=== PATIENT | male | born 1995 | race Two or more races ===

== ENCOUNTER 2022-09-20 06:44 | Outpatient (CLI) | payer OTHER | END 2022-09-20 06:46 | disposition home or self-care (01) | LOC: LAB 06:44 | DX: C18.9 Malignant neoplasm of colon, unspecified (principal); E78.5 Hyperlipidemia, unspecified; D50.8 Other iron deficiency anemias ==

== ENCOUNTER 2023-08-24 00:55 | Emergency (ER) | payer OTHER ==
[~2023-08-24] VITALS: Ht 177.8 cm; Wt 62.6 kg
[2023-08-24 04:36] LABS: HEMATOCRIT 45.6 % (39.0-48.0); MEAN CELL VOLUME 85.1 fL (80.0-100.00); MEAN CORPUSCULAR HEMOGLOBIN 29.9 pg (27.00-32.0); MEAN CORPUSCULAR HGB CONC 35.2 g/dl (32.0-36.0); PLATELET COUNT 247 K/uL (150-450); RED BLOOD COUNT 5.36 M/uL (4.00-6.00); RED CELL DISTRIBUTION WIDTH 14.3 % (11.5-14.5)
[2023-08-24 04:53] LABS: INR 1.14; PARTIAL THROMBOPLASTIN TIME 29.9 SECONDS (22.0-34.0)
[2023-08-24 04:59] LABS: ALBUMIN 4.2 gm/dL (3.4-5.0); BILIRUBIN TOTAL 0.58 mg/dL (0.3-1.2); CALCIUM 9.4 mg/dL (8.5-10.1); CREATININE SERUM 0.89 mg/dL (0.70-1.30); GFR 101.06; GLOBULINA 3.7 G/DL (2.4-3.5); POTASSIUM 3.97 mEq/L (3.5-5.1); TOTAL PROTEIN 7.9 gm/dL (6.4-8.2)
[2023-08-24] MEDS ORDERED: MECLIZINE HCL25 MG PO (06:23)
[2023-08-24 07:25] LABS: PROTHROMBIN TIME 11.9 SECONDS (9.0-11.5)
== END 2023-08-24 06:26 ==
LOC: ER 00:55
PROVIDERS: General Practice
DX: R53.1 Weakness (principal); R20.2 Paresthesia of skin

== ENCOUNTER 2023-09-17 17:54 | Emergency (ER) | payer OTHER ==
[~2023-09-17] VITALS: Ht 170.2 cm; Wt 70.8 kg
[~2023-09-17 17:54] MED LIST: MECLIZINE HCL25 MG PO
[2023-09-17 20:06] LABS: HEMATOCRIT 47.4 % (39.0-48.0); HEMOGLOBIN 16.4 g/dL (13-16.00); MEAN CELL VOLUME 86.7 fL (80.0-100.00); MEAN CORPUSCULAR HEMOGLOBIN 30.1 pg (27.00-32.0); MEAN CORPUSCULAR HGB CONC 34.7 g/dl (32.0-36.0); PLATELET COUNT 276 K/uL (150-450); RED BLOOD COUNT 5.46 M/uL (4.00-6.00)
[2023-09-17 20:29] LABS: ALBUMIN 4.7 gm/dL (3.4-5.0); BILIRUBIN TOTAL 0.64 mg/dL (0.3-1.2); CALCIUM 9.9 mg/dL (8.5-10.1); CREATININE SERUM 0.92 mg/dL (0.70-1.30); GFR 97.26; GLOBULINA 3.6 G/DL (2.4-3.5); POTASSIUM 4.51 mEq/L (3.5-5.1); TOTAL PROTEIN 8.3 gm/dL (6.4-8.2)
== END 2023-09-17 20:55 | disposition home or self-care (01) ==
LOC: ER 17:54
PROVIDERS: General Practice
DX: K29.70 Gastritis, unspecified, without bleeding (principal)

== ENCOUNTER 2023-09-27 19:45 | Emergency (ER) | payer OTHER ==
[~2023-09-27] VITALS: Ht 177.8 cm; Wt 59.9 kg
== END 2023-09-27 23:38 | disposition home or self-care (01) ==
LOC: ER 19:46
DX: R53.81 Other malaise (principal); M54.2 Cervicalgia

== ENCOUNTER 2023-09-28 09:35 | Outpatient (CLI) | payer OTHER ==
[2023-09-28 10:27] LABS: HEMATOCRIT 47.7 % (39.0-48.0); HEMOGLOBIN 16.7 g/dL (13-16.00); MEAN CELL VOLUME 85.2 fL (80.0-100.00); MEAN CORPUSCULAR HEMOGLOBIN 29.8 pg (27.00-32.0); MEAN CORPUSCULAR HGB CONC 34.9 g/dl (32.0-36.0); PLATELET COUNT 234 K/uL (150-450)
[2023-09-28 10:56] LABS: CHOL HDL RATIO 3.6 (0-5.0); CREATININE SERUM 1.1 mg/dL (0.70-1.30)
== END 2023-09-28 09:36 | disposition home or self-care (01) ==
LOC: LAB 09:35
PROVIDERS: ATTEND Internal Medicine
DX: I77.9 Disorder of arteries and arterioles, unspecified (principal); C18.9 Malignant neoplasm of colon, unspecified; E78.5 Hyperlipidemia, unspecified; D50.8 Other iron deficiency anemias

== ENCOUNTER → 2023-09-28 | Outpatient (CLI) | payer OTHER | END | disposition home or self-care (01) | LOC: MRI 11:09 | DX: I77.9 Disorder of arteries and arterioles, unspecified (principal) | CPT/HCPCS: 70548 ==

== ENCOUNTER 2023-10-01 22:13 | Emergency (ER) | payer OTHER ==
[~2023-10-01] VITALS: Ht 177.8 cm; Wt 59.9 kg
[2023-10-01 23:29] LABS: HEMATOCRIT 43.8 % (39.0-48.0); HEMOGLOBIN 15.4 g/dL (13-16.00); MEAN CORPUSCULAR HEMOGLOBIN 30.2 pg (27.00-32.0); MEAN CORPUSCULAR HGB CONC 35.1 g/dl (32.0-36.0); PLATELET COUNT 213 K/uL (150-450); RED CELL DISTRIBUTION WIDTH 13.7 % (11.5-14.5)
[2023-10-01 23:48] LABS: CALCIUM 9.3 mg/dL (8.5-10.1); CREATININE SERUM 1.28 mg/dL (0.70-1.30); GFR 66.44; POTASSIUM 3.92 mEq/L (3.5-5.1)
[2023-10-01 23:55] LABS: INR 1.16; PARTIAL THROMBOPLASTIN TIME 29.6 SECONDS (22.0-34.0)
[2023-10-01 23:58] LABS: URINE APPEARANCE Clear; URINE BILIRRUBIN Negative (NEGATIVE); URINE BLOOD Trace; URINE COLOR Yellow; URINE GLUCOSE Negative (NEGATIVE); URINE LEUKOCYTE Negative; URINE NITRATE Negative; URINE UROBILINOGEN 0.2 E.U./dl
[2023-10-02 00:01] LABS: URINE BACTERIA 32.7 uL (0.0-1933); URINE RBC 3.5 uL (0.0-20.8)
[2023-10-02 00:06] LABS: URINE EPITHELIAL CELLS 1.3 uL (0.0-38.8); URINE PROTEIN 100 (NEGATIVE); URINE WBC 1.3 uL (0.0-23.2)
== END 2023-10-02 03:25 | disposition home or self-care (01) ==
LOC: ER 22:14
PROVIDERS: General Practice
DX: R10.9 Unspecified abdominal pain (principal); K30 Functional dyspepsia; R14.3 Flatulence; R14.2 Eructation

== ENCOUNTER 2023-10-06 19:56 | Emergency (ER) | payer OTHER ==
[~2023-10-06] VITALS: Ht 177.8 cm; Wt 59.0 kg
[2023-10-06] MEDS ORDERED: FAMOTIDINE20 MG (20:13)
[2023-10-06] MEDS ORDERED: LISINOPRIL2.5 MG (20:13)
[2023-10-06 22:47] LABS: HEMATOCRIT 41.2 % (39.0-48.0); HEMOGLOBIN 14.6 g/dL (13-16.00); MEAN CELL VOLUME 85.1 fL (80.0-100.00); MEAN CORPUSCULAR HEMOGLOBIN 30.2 pg (27.00-32.0); MEAN CORPUSCULAR HGB CONC 35.5 g/dl (32.0-36.0); PLATELET COUNT 171 K/uL (150-450); RED BLOOD COUNT 4.85 M/uL (4.00-6.00); RED CELL DISTRIBUTION WIDTH 13.6 % (11.5-14.5)
[2023-10-06 22:58] LABS: URINE APPEARANCE Clear; URINE BILIRRUBIN Negative (NEGATIVE); URINE BLOOD Small; URINE COLOR Yellow; URINE GLUCOSE Negative (NEGATIVE); URINE LEUKOCYTE Negative; URINE NITRATE Negative; URINE PROTEIN Negative (NEGATIVE); URINE UROBILINOGEN 0.2 E.U./dl
[2023-10-06 23:02] LABS: URINE WBC 3.2 uL (0.0-23.2)
[2023-10-06 23:06] LABS: URINE BACTERIA 3.7 uL (0.0-1933); URINE EPITHELIAL CELLS 1.2 uL (0.0-38.8)
[2023-10-06 23:15] LABS: CREATININE SERUM 1.47 mg/dL (0.70-1.30); GFR 56.63; POTASSIUM 3.92 mEq/L (3.5-5.1)
[2023-10-07] MEDS ORDERED: LEVSIN/SL0.125 MG SL (02:44)
[2023-10-07] MEDS ORDERED: PEPCID AC20 MG PO (02:44)
[2023-10-07] MEDS ORDERED: CARAFATE1 GM PO (02:51)
== END 2023-10-07 03:00 | disposition home or self-care (01) ==
LOC: ER 19:56
DX: R10.9 Unspecified abdominal pain (principal)
CPT/HCPCS: 36415; 74177; Q9965

== ENCOUNTER → 2023-11-02 07:04 | Outpatient (CLI) | payer OTHER ==
[~2023-11-02 07:04] MED LIST changes: +CARAFATE1 GM PO; +FAMOTIDINE20 MG; +LEVSIN/SL0.125 MG SL; +LISINOPRIL2.5 MG; +PEPCID AC20 MG PO
[2023-11-02 08:51] LABS: HEMATOCRIT 44.3 % (39.0-48.0); HEMOGLOBIN 15.4 g/dL (13-16.00); MEAN CELL VOLUME 84.4 fL (80.0-100.00); MEAN CORPUSCULAR HEMOGLOBIN 29.2 pg (27.00-32.0); MEAN CORPUSCULAR HGB CONC 34.6 g/dl (32.0-36.0); PLATELET COUNT 187 K/uL (150-450); RED BLOOD COUNT 5.25 M/uL (4.00-6.00); RED CELL DISTRIBUTION WIDTH 13.4 % (11.5-14.5)
[2023-11-02 09:28] LABS: ALBUMIN 4.2 gm/dL (3.4-5.0); BILIRUBIN TOTAL 0.83 mg/dL (0.3-1.2); CALCIUM 9.5 mg/dL (8.5-10.1); CHOL HDL RATIO 4.3 (0-5.0); CREATININE SERUM 1.13 mg/dL (0.70-1.30); FREE TRIODOTIRONINE 2.87 pg/ml (2.18-3.98); GFR 76.72; GLOBULINA 3.3 G/DL (2.4-3.5); POTASSIUM 3.66 mEq/L (3.5-5.1); T4 FREE 1.29 NG/ML (0.76-1.46); TOTAL PROTEIN 7.5 gm/dL (6.4-8.2); TSH 1.82 uIU/mL (0.358-3.74)
[2023-11-02 09:33] LABS: URINE APPEARANCE Clear; URINE BILIRRUBIN Negative (NEGATIVE); URINE BLOOD Negative; URINE COLOR Yellow; URINE GLUCOSE Negative (NEGATIVE); URINE LEUKOCYTE Trace; URINE NITRATE Negative; URINE PROTEIN Negative (NEGATIVE); URINE UROBILINOGEN 0.2 E.U./dl
[2023-11-02 09:44] LABS: URINE BACTERIA 23.9 uL (0.0-1933); URINE EPITHELIAL CELLS 1.6 uL (0.0-38.8); URINE RBC 2.1 uL (0.0-20.8); URINE WBC 10.7 uL (0.0-23.2)
[2023-11-02 14:14] LABS: ob NEGATIVE (NEGATIVE)
== END | disposition home or self-care (01) ==
LOC: LAB 07:04
DX: D64.9 Anemia, unspecified (principal); I10 Essential (primary) hypertension; Z13.1 Encounter for screening for diabetes mellitus; Z11.4 Encounter for screening for human immunodeficiency virus [HIV]; E78.00 Pure hypercholesterolemia, unspecified; N39.0 Urinary tract infection, site not specified; E55.9 Vitamin D deficiency, unspecified; Z13.89 Encounter for screening for other disorder; Z12.11 Encounter for screening for malignant neoplasm of colon

== ENCOUNTER 2023-11-29 09:17 | Outpatient (CLI) | payer OTHER | END 2023-11-29 09:18 | disposition home or self-care (01) | LOC: LAB 09:17 | DX: Z13.1 Encounter for screening for diabetes mellitus (principal) ==

== ENCOUNTER 2023-11-30 07:47 | Outpatient (CLI) | payer OTHER | END 2023-11-30 07:55 | disposition home or self-care (01) | LOC: SONOGRAMA 07:47 | DX: R10.84 Generalized abdominal pain (principal); Z13.29 Encounter for screening for other suspected endocrine disorder; M54.9 Dorsalgia, unspecified ==

== ENCOUNTER → 2024-05-30 08:03 | Outpatient (CLI) | payer OTHER ==
[2024-05-30 08:46] LABS: HEMATOCRIT 44.6 % (39.0-48.0); HEMOGLOBIN 15.5 g/dL (13-16.00); MEAN CELL VOLUME 85.8 fL (80.0-100.00); MEAN CORPUSCULAR HEMOGLOBIN 29.8 pg (27.00-32.0); MEAN CORPUSCULAR HGB CONC 34.7 g/dl (32.0-36.0); PLATELET COUNT 213 K/uL (150-450); RED CELL DISTRIBUTION WIDTH 14.3 % (11.5-14.5)
[2024-05-30 09:49] LABS: ALBUMIN 4.3 gm/dL (3.4-5.0); BILIRUBIN TOTAL 0.45 mg/dL (0.3-1.2); CALCIUM 9.6 mg/dL (8.5-10.1); CREATININE SERUM 1.01 mg/dL (0.70-1.30); GFR 86.73; GLOBULINA 3.2 G/DL (2.4-3.5); POTASSIUM 3.98 mEq/L (3.5-5.1); TOTAL PROTEIN 7.5 gm/dL (6.4-8.2)
== END | disposition home or self-care (01) ==
LOC: LAB 08:03
PROVIDERS: ATTEND Internal Medicine
DX: D50.8 Other iron deficiency anemias (principal); C18.9 Malignant neoplasm of colon, unspecified

== ENCOUNTER 2024-07-29 07:32 | Outpatient (CLI) | payer OTHER ==
[2024-07-29 08:06] LABS: URINE APPEARANCE Clear; URINE BILIRRUBIN Negative (NEGATIVE); URINE BLOOD Negative; URINE COLOR Yellow; URINE GLUCOSE Negative (NEGATIVE); URINE KETONE Negative (NEGATIVE); URINE LEUKOCYTE Negative; URINE NITRATE Negative; URINE PROTEIN Negative (NEGATIVE); URINE UROBILINOGEN 0.2 E.U./dl
[2024-07-29 08:08] LABS: URINE RBC 6.7 uL (0.0-20.8)
[2024-07-29 08:08] LABS: HEMATOCRIT 45.5 % (39.0-48.0); HEMOGLOBIN 15.7 g/dL (13-16.00); MEAN CELL VOLUME 86.4 fL (80.0-100.00); MEAN CORPUSCULAR HEMOGLOBIN 29.7 pg (27.00-32.0); MEAN CORPUSCULAR HGB CONC 34.4 g/dl (32.0-36.0); PLATELET COUNT 219 K/uL (150-450); RED BLOOD COUNT 5.27 M/uL (4.00-6.00); RED CELL DISTRIBUTION WIDTH 13.7 % (11.5-14.5)
[2024-07-29 08:34] LABS: URINE BACTERIA 2.5 uL (0.0-1933); URINE CAST 0.15 uL (0.0-1.40); URINE EPITHELIAL CELLS 0.9 uL (0.0-38.8)
[2024-07-29 09:33] LABS: ALBUMIN 4.3 gm/dL (3.4-5.0); BILIRUBIN TOTAL 0.83 mg/dL (0.3-1.2); CALCIUM 9.5 mg/dL (8.5-10.1); CHOL HDL RATIO 3.5 (0-5.0); FREE TRIODOTIRONINE 3.04 pg/ml (2.18-3.98); GFR 87.74; GLOBULINA 3.3 G/DL (2.4-3.5); POTASSIUM 4.09 mEq/L (3.5-5.1); T4 FREE 1.1 NG/ML (0.76-1.46); TOTAL PROTEIN 7.6 gm/dL (6.4-8.2); TSH 1.24 uIU/mL (0.358-3.74)
== END 2024-07-29 07:36 | disposition home or self-care (01) ==
LOC: LAB 07:32
DX: D64.9 Anemia, unspecified (principal); I10 Essential (primary) hypertension; Z13.1 Encounter for screening for diabetes mellitus; E78.00 Pure hypercholesterolemia, unspecified; Z13.29 Encounter for screening for other suspected endocrine disorder; N39.0 Urinary tract infection, site not specified

== ENCOUNTER 2024-12-22 08:35 | Outpatient (CLI) | payer OTHER ==
[2024-12-22 10:16] LABS: CHOL HDL RATIO 4.1 (0-5.0)
== END 2024-12-22 08:40 | disposition home or self-care (01) ==
LOC: LAB 08:35
DX: E78.00 Pure hypercholesterolemia, unspecified (principal)

== ENCOUNTER 2025-09-07 19:50 | Emergency (ER) | payer OTHER ==
[~2025-09-07] VITALS: Ht 177.8 cm; Wt 59.0 kg
[2025-09-07 21:23] VITALS: BP 117/80; O2SAT 98
[2025-09-08] MEDS ORDERED: CEFTRIAXONE SODIUM 1,000 MG VIAL IV ONE (00:45)
[2025-09-08] MEDS ORDERED: DIPHTH,PERTUSS(ACELL),TET VAC 0.5 ML SYRINGE IM ONE (00:45)
[2025-09-08] MEDS ORDERED: LIDOCAINE HCL 1% 10ML VIAL PERCUT ONE (00:45)
[2025-09-08] MEDS ORDERED: CEFUROXIME500 MG PO (02:13)
[2025-09-08] MEDS ORDERED: PEPCID AC20 MG PO (02:13)
== END 2025-09-08 02:24 | disposition home or self-care (01) ==
LOC: ER 19:51
DX: S61.220A Laceration with foreign body of right index finger without damage to nail, initial encounter (principal); W27.0XXA Contact with workbench tool, initial encounter; Y93.89 Activity, other specified; Y92.89 Other specified places as the place of occurrence of the external cause
CPT/HCPCS: 12002; 90471; 90714; J1670